=== PATIENT | female | born 1980 | race Two or more races ===

== ENCOUNTER 2024-04-22 14:58 | Inpatient (IN) | payer MEDICAID, OTHER ==
[~2024-04-22] VITALS: Ht 162.6 cm; Wt 90.0 kg
--- NOTE | 2024-04-22 15:21 | ED.PDOC ---
GI ASSESSMENT HPI Comments 43 year old female WHITNEY presents to the ED with chief complaint of abdominal pain. Patient reports that she has been experiencing RUQ abdominal pain for the past 4 hours. Patient relays that she has been taking Wegovy as prescribed by her PCP recently for weight loss. EMS relays patient's BG was 65 and also noted all her vital signs were normal. Patient denies any N/V/D, dizziness, fever, chills, dysuria, or headache. Time Seen by MD: 15:18 Reviewed Notes: Nurses Notes, Nutrition Teacher Notes, Medications, Allergies Allergies: Coded Allergies: Sulfa Antibiotics (Verified Allergy, Unknown, 04/22/24) Home Meds Active Scripts Pantoprazole Sodium Sesquihydr (Protonix) 40 Mg Tab, 40 MG PO DAILY for 5 Days, #5 TAB Prov:EULALIO MEDEL MD 04/22/24 Information Source: Patient, Emergency Med Personnel Mode of Arrival: Ambulatory Timing: Hours Duration: Since onset Prehospital treatment: None Quality: Aching Vomitus: None Stool: Normal Severity: Moderate Recent: None Recent Hx of: None Pain Location: RUQ Modifying Factors: Nothing Associated sign and symptoms: Abdominal Pain Past Medical History PAST MEDICAL HISTORY: Denies Surgical History: Appendectomy Surgical History (Other): Gastric sleeve OPTOMETRIST/PRACTICE OWNER History: No Pertinent OPTOMETRIST/PRACTICE OWNER History Family History Family History: Reviewed,noncontributory to illness Social History Smoker: Non-Smoker Alcohol: Denies ETOH Use Drugs: Denies Drug Use Lives In: Home Constitutional: denies: chills, diaphoresis, fatigue, fever, malaise, sweats, weakness, others EENTM: denies: blurred vision, double vision, ear bleeding, ear discharge, ear drainage, ear pain, ear ringing, eye pain, eye redness, hearing loss, mouth pain, mouth swelling, nasal discharge, nose bleeding, nose congestion, nose pain, photophobia, tearing, throat pain, throat swelling, voice changes, others Respiratory: denies: cough, hemoptysis, orthopnea, SOB at rest, shortness of breath, SOB with excertion, stridor, wheezing, others Cardiovascular: denies: chest pain, dizzy spells, diaphoresis, Dyspnea on exertion, edema, irregular heart beat, left arm pain, lightheadedness, palpitations, PND, syncope, others Gastrointestinal: reports: abdominal pain; denies: abdomen distended, blood streaked bowels, constipated, diarrhea, dysphagia, difficulty swallowing, hematemesis, melena, nausea, poor appetite, poor fluid intake, rectal bleeding, rectal pain, vomiting, others Genitourinary: denies: abnormal vagina bleeding, burning, dyspareunia, dysuria, flank pain, frequency, hematuria, incontinence, pain, , vagina discharge, urgency, others Neurological: denies: dizziness, fainting, headache, left sided numbness, left sided weakness, numbness, paresthesia, pre-existing deficit, right sided numbness, right sided weakness, seizure, speech problems, tingling, tremors, weakness, others Musculoskeletal: denies: back pain, gout, joint pain, joint swelling, muscle pain, muscle stiffness, neck pain, others Integumetry: denies: bruises, change in color, change in hair/nails, dryness, laceration, lesions, lumps, rash, wounds, others Allergic/Immunocompromised: denies: Difficulty Healing, Frequent Infections, Hives, Itching, others Hematologic/Lymphatic: denies: anemia, blood clots, easy bleeding, easy bruising, swollen glands, others Endocrine: denies: excessive hunger, excessive sweating, excessive thirst, excessive urination, flushing, intolerance to cold, intolerance to heat, unexplained weight gain, unexplained weight loss, others Psychiatric: denies: anxiety, bipolar disorder, depression, hopeless, panic disorder, schizophrenia, sleepless, suicidal, others All Other Systems: Reviewed and Negative Physical Exam General Appearance: Moderate Distress, Normal HEENT: Normal ENT Inspection, PERRL/EOMI Neck: Full Range of Motion, Non-Tender, Normal, Normal Inspection Respiratory: Chest Non-Tender, Lungs Clear, No Accessory Muscle Use, No Respiratory Distress, Normal Breath Sounds Cardiovascular: No Edema, No JVD, No Murmur, No Gallop, Normal Peripheral Pul ses, Regular Rate/Rhythm Breast Exam: Deferred Gastrointestinal: No Organomegaly, Non Tender, No Pulsatile Mass, Normal Bowel Sounds, Soft Genitalia: Deferred Pelvic: Deferred Rectal: Deferred Extremities: No calf tenderness, Normal capillary refill, Normal inspection, Normal range of motion, Non-tender, No pedal edema Musculoskeletal : Apperance: Normal Neurologic: Alert, shock absorption floor layer II-XII nml as Tested, No Motor Deficits, Normal Affect, Normal Mood, No Sensory Deficits Cerebellar Function: Normal Reflexes: Normal Skin: Dry, Normal Color, Warm Peripheral Pulses: 3+ Radial (R), 3+ Radial (L) Lymphatic: No Adenopathy Was a procedure done? Was a procedure done?: No GI differential Dx Differential Diagnosis: Constipation, Diverticular disease, Esophagitis, Gastritis/PUD, Gastroenteritis X-Ray, Labs, Meds, VS Vital Signs Date Time Temp Pulse Resp B/P (MAP) Pulse Ox O2 Delivery O2 Flow Rate FiO2 04/22/24 17:00 102 15 100 Room Air* 0 21 04/22/24 17:00 102 15 156/93 (114) 100 04/22/24 15:02 98.7 100 20 140/84 (102) 98 Lab Test 04/22/24 15:21 Range/Units White Blood Count 8.5 4.4-10.8 10^3/uL Red Blood Count 4.09 4.0-5.20 10^6/uL Hemoglobin 11.7 L 12.2-16.2 g/dL Hematocrit 36.7 36.0-46.0 % Mean Corpuscular Volume 89.9 80.0-100.0 fL Mean Corpuscular Hemoglobin 28.5 28.0-32.0 pg Mean Corpuscular Hemoglobin Concent 31.7 L 32.0-36.0 g/dL Red Cell Distribution Width 18.1 H 11.8-14.3 % Platelet Count 361 140-450 10^3/uL Mean Platelet Volume 6.2 L 6.9-10.8 fL Neutrophils (%) (Auto) 71.2 37.0-80.0 % Lymphocytes (%) (Auto) 20.6 10.0-50.0 % Monocytes (%) (Auto) 7.5 0.0-12.0 % Eosinophils (%) (Auto) 0.4 0.0-7.0 % Basophils (%) (Auto) 0.3 0.0-2.0 % Neutrophils # (Auto) 6.0 1.6-8.6 10 ^3/uL Lymphocytes # (Auto) 1.7 0.4-5.4 10 ^3/uL Monocytes # (Auto) 0.6 0-1.3 10 ^3/uL Eosinophils # (Auto) 0 0-0.8 10 ^3/uL Basophils # (Auto) 0 0-0.2 10 ^3/uL Nucleated Red Blood Cells 0.2 % Sodium Level 139 136-145 mmol/L Potassium Level 3.6 3.5-5.1 mmol/L Chloride Level 103 98-107 mmol/L Carbon Dioxide Level 27 20-31 mmol/L Anion Gap 9 5-15 Blood Urea Nitrogen < 5 L 9-23 mg/dL Creatinine 0.84 0.550-1.02 mg/dL Glomerular Filtration Rate Calc 87 >90 mL/min BUN/Creatinine Ratio 6.0 L 10.0-20.0 Serum Glucose 92 74-106 mg/dL Calcium Level 10.0 8.7-10.4 mg/dL Total Bilirubin 0.3 0.2-1.0 mg/dL Current Medications Medications (Trade) Dose Ordered Sig/Otis Route Start Time Stop Time Status Last Admin Acetaminophen/ Hydrocodone Bitart ([place] 10/325MG Tab) 1 tab ONCE ONCE PO 04/22/24 17:30 04/22/24 17:31 04/22/24 17:26 Patient alert. Came in because of abdominal pain. Abdomen is soft nontender. Vitals stable. WBC within normal limits. Hematocrit within normal limits. Total bilirubin within normal limits. Physical examination pristine. Reviewed her history. On re-evaluation abdomen is soft. No leg swelling. Lungs clear. Saturation pristine on room air. Heart rate within normal limits. Possible gastritis. Explained to the patient. Was given prescription of Protonix. Was told to follow up with her primary care physician. Was told to come back if there is any problem. Wanted to discharge the patient but she insists that pain is more than when she came in. She continues to hold her right side of her abdomen. Abdomen is soft on examination. CT scan of the abdomen. She did have bariatric surgery many years ago. Time of 1ST Reevaluation: 16:18 Reevaluation 1ST: Unchanged Patient Education/Counseling: Diagnosis, Treatment Family Education/Counseling: No Family Present Departure 1 Departure Time of Disposition: 16:31 Impression: Primary Impression: Acute abdominal pain Additional Impression: Gastritis Qualified Codes: K29.00 - Acute gastritis without bleeding Disposition: ADMITTED INPATIENT Admit to: Med Surg Condition: Guarded e-Prescriptions Pantoprazole Sodium Sesquihydr (Protonix) 40 Mg Tab 40 MG PO DAILY for 5 Days, #5 TAB Prov: EULALIO MEDEL MD 04/22/24 Critical Care Note Critical Care Time?: No Stability Stability form required: No Heart Score Heart Score: Heart Score Response (Comments) Value History N/A 0 EKG N/A 0 Age N/A 0 Risk Factors N/A 0 Troponin N/A 0 Total 0 I personally scribed for EULALIO MEDEL MD ([email or web address]) on 04/22/24 at 15:21. Electronically submitted by Harrison Martinez ([email or web address]). EULALIO MEDEL MD Apr 22, 2024 15:21
[2024-04-22 15:42] LABS: Basophils # (auto) 0 10 ^3/uL (0-0.2); Basophils % (auto) 0.3 % (0.0-2.0); Eosinophils # (auto) 0 10 ^3/uL (0-0.8); Eosinophils % (auto) 0.4 % (0.0-7.0); Hematocrit 36.7 % (36.0-46.0); Hemoglobin 11.7 g/dL (12.2-16.2); Lymphocytes # (auto) 1.7 10 ^3/uL (0.4-5.4); Lymphocytes % (auto) 20.6 % (10.0-50.0); Mean Corpuscular Hemoglobin 28.5 pg (28.0-32.0); Mean Corpuscular Hgb Conc. 31.7 g/dL (32.0-36.0); Mean Corpuscular Volume 89.9 fL (80.0-100.0); Monocytes # (auto) 0.6 10 ^3/uL (0-1.3); Monocytes % (auto) 7.5 % (0.0-12.0); Neutrophils % (auto) 71.2 % (37.0-80.0); Nucleated Red Blood Cells % 0.2 %; Platelet Count (auto) 361 10^3/uL (140-450); Red Blood Cells 4.09 10^6/uL (4.0-5.20); Red Cell Distribution Width 18.1 % (11.8-14.3); White Blood Cell 8.5 10^3/uL (4.4-10.8)
[2024-04-22 15:52] LABS: Chloride 103 mmol/L (98-107); Potassium 3.6 mmol/L (3.5-5.1); Sodium 139 mmol/L (136-145)
[2024-04-22 15:53] LABS: Anion Gap 9 (5-15); Carbon Dioxide 27 mmol/L (20-31)
[2024-04-22 15:58] LABS: Glucose 92 mg/dL (74-106)
[2024-04-22 16:00] LABS: Bilirubin, Total 0.3 mg/dL (0.2-1.0)
[2024-04-22 16:10] LABS: Blood Urea Nitrogen < 5 mg/dL (9-23)
[2024-04-22] MEDS ORDERED: PANT40TA2 PO (16:32)
[2024-04-22 17:00] VITALS: PULSE 102; RESP 15; O2SAT 100
[2024-04-22] MEDS: HYDROcodone-ACET 10/325MG TAB PO ONE (17:26)
[2024-04-22] MEDS: PANTOPRAZOLE 40 MG/10 ML VIAL INJ IV ONE (17:30)
[2024-04-22] MEDS: SODIUM CHLORIDE 0.9% 1,000 ML IV ONE ×2 (17:30)
--- NOTE | 2024-04-22 19:40 | DVH ---
CLINICAL HISTORY: Flank pain, renal stone TECHNIQUE: CT of the abdomen and pelvis was performed without intravenous contrast. This exam was per formed according to our departmental dose optimization program. Up-to-date CT equipment and radiation dose reduction techniques are utilized as appropriate. [Radimetrics Exposure Report] CTDI: [CTDIvol] DLP: 747.77 WID: COMPARISON: None FINDINGS: Lower Thorax: Small left pleural effusion. Normal-sized heart. Linear bibasilar scarring or atelecta sis. ground-glass opacification in the dependent right lower lobe Liver and Biliary system: Hepatomegaly measuring 20 cm craniocaudal. Otherwise unremarkable Spleen: Unremarkable. Adrenal Glands and Kidneys: Normal adrenal glands. No hydronephrosis or nephrolithiasis. Pancreas and Retroperitoneum: Unremarkable. Aorta and Major Vessels: Unremarkable. Bowel, Mesentery and Peritoneal space: Normal caliber small and large bowel. there is submucosal fatt y deposition of the large bowel most pronounced proximally. There is sleeve gastrectomy changes. Ther e is no free air or loculated fluid collection there is no mesenteric lymphadenopathy. Pelvis: The uterus is present. There are cystic small lesions in both ovaries measuring up to 2.3 cm on the right and 1.9 cm on the left on series 2, image 68. Urinary bladder is mildly distended. Ther e is no pelvic lymphadenopathy. Trace ascites in the pelvis.1 Abdominal wall and Osseous Structures: There soft tissue scarring in the posterior bilateral flank an d in the anterior and lateral abdominal wall. Tiny fat containing umbilical hernia. Mild degenerative disc disease at L5-S1. No destructive osseous lesion. IMPRESSION: 1. No hydronephrosis or nephrolithiasis. 2. Small left pleural effusion. 3. Mild ground-glass opacification of the dependent right lower lobe which could reflect atelectasis or pneumonia . 4. Mild Hepatomegaly. 5. Small cystic lesions in both ovaries which could reflect follicular cysts if the patient is still menstruating. Correlate with clinical history. 6. Prior sleeve gastrectomy. 7. Mild ascites in the pelvis which may be physiologic
[2024-04-22] MEDS ORDERED: MORPHINE SULFATE INJ 2 MG/ml SYRG IV PRN (22:30)
[2024-04-22] MEDS ORDERED: NITROGLYCERIN 0.4 MG SL TAB SL PRN (22:30)
[2024-04-22] MEDS: SODIUM CHLORIDE 0.9% 1,000 ML IV SCH (22:30)
[2024-04-22] MEDS ORDERED: ACETAMINOPHEN 325 MG TAB PO PRN (22:30)
[2024-04-23] VITALS (9 sets, daily range): BP systolic 119–143; BP diastolic 72–82; PULSE 93–104; RESP 17–27; TEMP 97.8–99; O2SAT 94–98
[2024-04-23 00:08] LABS: Thyroid Stimulating Hormone 1.67 uIU/mL (0.55-4.78)
[2024-04-23 00:09] LABS: Beta HCG, Quantitative 0.1 mIU/mL (1.5-4.2)
[2024-04-23] MEDS: ONDANSETRON HCL 4 MG/2 ML VIAL IV ONE (00:15)
[2024-04-23] MEDS: MORPHINE SULFATE INJ 2 MG/ml SYRG IV PRN (00:17)
[2024-04-23] MEDS: LIDOCAINE VISCOUS 2% 15ML UD PO ONE (00:18)
[2024-04-23] MEDS: MAALOX PLUS or MAALOX 30 ML PO ONE (00:18)
--- NOTE | 2024-04-23 01:12 | DVHHPRES ---
History of Present Illness Resident Creating Document: TRINO SMITH RESIDENT Reason for Visit: acute abdominal pain History of Present Illness 43-year-old female patient with past medical history of appendectomy at age 6 and gastric sleeve surgery who presented to the emergency department with a chief complaint of severe abdominal pain localized in the right upper quadrant radiating to the back the pain started acutely this morning, is constant, and is rated as 10/10 intensity. The severity of the pain significantly impairs her ability to move, speak or perform basic activities. She denies associated symptoms such as nausea vomiting, diarrhea or chest pain. The patient reports recently starting Wegovy which is semaglutide as prescribed by her primary care physician for weight loss. She denies other significant complaints at this time. She has no history of smoking cigarettes but occasionally smoke marijuana and consumes alcohol approximately 4 times a week with 2-3 drinks per occasion. She has an allergy to sulfa antibiotics. On examination the patient was in significant distress and reluctant to undergo further physical examination until pain medication was provided. CT abdomen revealed mild hepatomegaly, small pleural effusion, mild ground-glass opacification in the right lower lobe and mild pelvic ascites these findings could raise concerns for possible pneumonia for which the patient was started on empiric antibiotic with azithromycin and ceftriaxone and also sputum culture and blood culture were ordered. Family History: None Smoke: No ALCOHOL: heavy Drugs: Marijuana Lives: with Family Domestic Violence: Neg Review of Systems Review of Systems Constitutional: Positive for severe pain and distress. Negative for fever or weight changes. Eyes: No: Pain, Vision change, Conjunctivae inflammation, Eyelid inflammation, Other, Redness ENT: No: Ear pain, Ear discharge, Nose pain, Nose discharge, Nose congestion, Mouth pain, Mouth swelling, Throat pain, Throat swelling, Other Respiratory: Tachypnea, negative for dyspnea cough or chest pain Cardiovascular: No: Chest Pain, Palpitations, Orthopnea, Paroxysmal Noc. Dyspnea, Edema, Lt Headedness, Other Gastrointestinal: Positive for right upper quadrant pain, exactly localize pill below the right breast, negative for nausea vomiting diarrhea or constipation. Musculoskeletal: No: other, neck pain, shoulder pain, arm pain, back pain, hand pain, leg pain, foot pain Neurological:; negative for headache or focal deficits. Allergies: Coded Allergies: Latex (Verified Allergy, Intermediate, RASH, 04/23/24) Sulfa Antibiotics (Verified Allergy, Unknown, 04/22/24) Medications Current Medications Medications Dose Ordered Sig/Otis Route Start Time Stop Time Status Last Admin Dose Admin Sodium Chloride 1,000 ml @ 60 mls/hr [id number] IV 04/22/24 22:30 Ondansetron HCl 4 mg Q4HP PRN IV 04/22/24 22:30 Acetaminophen 650 mg Q6HP PRN PO 04/22/24 22:30 Morphine Sulfate 2 mg Q4HPRN PRN IV 04/22/24 22:30 04/23/24 00:17 2 MG Nitroglycerin 0.4 mg Q5MINP PRN SL 04/22/24 22:30 Morphine Sulfate 2 mg Q30M PRN IV 04/22/24 22:30 Exam Vital Signs Vital Signs Date Time Temp Pulse Resp B/P (MAP) Pulse Ox O2 Delivery O2 Flow Rate FiO2 04/23/24 00:17 104 22 143/78 04/22/24 20:03 99.0 100 99.0 04/22/24 17:00 Room Air* 0 21 Exam Examination General Appearance: Patient appears in acute distress, visibly uncomfortable Respiratory: Clear to auscultation, Normal air movement Cardiovascular: Regular rate, Normal S1, Normal S2 Abdominal: Significant tenderness on palpation in the right upper quadrant below the right breast. That radiates to the back Examination limited due to patient's distress and refusal for further evaluation Labs/Xrays Labs Test 04/22/24 15:21 Range/Units White Blood Count 8.5 4.4-10.8 10^3/uL Red Blood Count 4.09 4.0-5.20 10^6/uL Hemoglobin 11.7 L 12.2-16.2 g/dL Hematocrit 36.7 36.0-46.0 % Mean Corpuscular Volume 89.9 80.0-100.0 fL Mean Corpuscular Hemoglobin 28.5 28.0-32.0 pg Mean Corpuscular Hemoglobin Concent 31.7 L 32.0-36.0 g/dL Red Cell Distribution Width 18.1 H 11.8-14.3 % Platelet Count 361 140-450 10^3/uL Mean Platelet Volume 6.2 L 6.9-10.8 fL Neutrophils (%) (Auto) 71.2 37.0-80.0 % Lymphocytes (%) (Auto) 20.6 10.0-50.0 % Monocytes (%) (Auto) 7.5 0.0-12.0 % Eosinophils (%) (Auto) 0.4 0.0-7.0 % Basophils (%) (Auto) 0.3 0.0-2.0 % Neutrophils # (Auto) 6.0 1.6-8.6 10 ^3/uL Lymphocytes # (Auto) 1.7 0.4-5.4 10 ^3/uL Monocytes # (Auto) 0.6 0-1.3 10 ^3/uL Eosinophils # (Auto) 0 0-0.8 10 ^3/uL Basophils # (Auto) 0 0-0.2 10 ^3/uL Nucleated Red Blood Cells 0.2 % Sodium Level 139 136-145 mmol/L Potassium Level 3.6 3.5-5.1 mmol/L Chloride Level 103 98-107 mmol/L Carbon Dioxide Level 27 20-31 mmol/L Anion Gap 9 5-15 Blood Urea Nitrogen < 5 L 9-23 mg/dL Creatinine 0.84 0.550-1.02 mg/dL Glomerular Filtration Rate Calc 87 >90 mL/min BUN/Creatinine Ratio 6.0 L 10.0-20.0 Serum Glucose 92 74-106 mg/dL Hemoglobin A1c 5.1 <5.7 % A1C Calcium Level 10.0 8.7-10.4 mg/dL Total Bilirubin 0.3 0.2-1.0 mg/dL Thyroid Stimulating Hormone (TSH) 1.67 0.55-4.78 uIU/mL Beta HCG, Quantitative 0.1 L 1.5-4.2 mIU/mL Assessment/Plan Assessment/Plan #Acute abdominal pain, rule out biliary colic? Pancreatitis? Peptic ulcer disease? Hepatobiliary pathology? -CT scan was negative -Pelvic ultrasound showed right ovary cyst -Liver function tests -Lipase #Mild hepatomegaly and ascites likely due to alcoholic liver disease -Hepatic panel -Coagulation panel -CT scan was negative #Small pleural effusion and ground-glass opacities likely atelectasis versus pneumonia -Monitor respiratory symptoms -Re-evaluate with other chest x-rays -Empiric antibiotics (azithromycin and ceftriaxone) -Sputum culture --Blood culture -Chest x-rays # mild anemia -iron panel -ferritin #Type 1 obesity -Lifestyle modification counseling and dietary habits counseling #Alcohol abuse Alcohol cessation counseling Case discussed with Dr. Guillory Goals of care discussed with the patient for 32 minutes Code status: Full code Plan discussed with: Patient My Orders Orders - TRINO SMITH RESIDENT Procedure Category Date Status Time Admit ADMIT 04/22/24 Transmitted 22:30 Allergies GERALD 04/22/24 In Process 22:30 Code Status CODE 04/22/24 Transmitted 22:30 Sodium Chloride 0.9% PHA 04/22/24 In Process 22:30 Ondansetron Hcl PHA 04/22/24 In Process (Zofran) 22:30 Complete Blood Count LAB 04/23/24 Logged 04:00 Comprehensive LAB 04/23/24 Logged Metabolic Panel 04:00 Acetaminophen Tablet PHA 04/22/24 In Process (Tylenol Tablet) 22:30 Morphine Sulfate PHA 04/22/24 In Process Injection 22:30 Nitroglycerin PHA 04/22/24 In Process Sublingual (Ntrostat 22:30 Morphine Sulfate PHA 04/22/24 In Process Injection 22:30 Oxygen By Nasal RT 04/22/24 Transmitted Cannula 22:30 Stat Ekg For Chest [facility] 04/22/24 In Process Pain 22:30 Notify Md Of Changes [facility] 04/22/24 In Process From Base 22:30 Motor Coach Driver For [facility] 04/22/24 In Process 24 Hours 22:30 Emergency Dysrhythmia [facility] 04/22/24 In Process Protocol 22:30 Rhythm Strips Once [facility] 04/22/24 In Process Every Shift 22:30 Drug Screen LAB 04/22/24 Logged 22:53 Stool Occult Blood LAB 04/22/24 Logged 22:53 Covid19 Antigen Marj LAB 04/22/24 Logged Rapid Influenza A&B LAB 04/22/24 Logged 22:53 Npo (Nothing By DIET 04/23/24 Transmitted Mouth) Diet Breakfast Pelvic US 04/23/24 Taken 00:01 Date of Service: Apr 22, 2024 Billing Provider: VIVIANA GUILLORY MD Common Visit Codes: 16157-CHFFCXI INP/OBS CARE (HIGH) TRINO SMITH RESIDENT Apr 23, 2024 01:12 VIVIANA GUILLORY MD Apr 23, 2024 19:28
--- NOTE | 2024-04-23 01:53 | DVH ---
TRANSABDOMINAL PELVIC ULTRASOUND CLINICAL HISTORY: acute abdominal pain TECHNIQUE: Multiple grayscale ultrasound images were obtained of the pelvis via transabdominal and tr ansvaginal approach. Limited color Doppler and spectral Doppler acquisitions were also obtained. COMPARISON: CT abdomen and pelvis from 04/22/2024 FINDINGS: Uterus: 10.3 x 4.7 x 3.7 cm. The uterine contour is smooth. No myometrial masses are seen. Endometrium: 0.5 cm. No endometrial mass is seen. Right adnexa: right ovary 3.1 x 2.6 x 2.5 cm. Normal arterial blood flow in the ovary. No right adnex al mass seen. Simple right ovarian cyst measures up to 1.9 cm Left adnexa: left ovary is not visualized. No left adnexal mass seen. Other: None IMPRESSION: 1. Normal uterus and endometrium. 2. Left ovary not visualized. 3. Right ovarian cyst
[2024-04-23] MEDS: AZITHROMYCIN 500MG/ 250ML 250 ML IV ONE (04:45)
[2024-04-23] MEDS: cefTRIAXone 1GM/50ML D5W 50 ML IV ONE (05:54)
--- NOTE | 2024-04-23 06:12 | DVH ---
CHEST RADIOGRAPH Indication: pneumonia Technique: Single frontal view of the chest was obtained COMPARISON: None FINDINGS: Lines and Tubes: None Lungs: Right lower lobe airspace opacity. Pleura: No effusion. No pneumothorax. Cardiomediastinal contours: Unremarkable Bones: Unremarkable IMPRESSION: Right lower lobe atelectasis or developing pneumonia.
[2024-04-23] MEDS: PANTOPRAZOLE 40 MG TAB PO SCH (07:04)
[2024-04-23 07:21] LABS: Basophils # (auto) 0 10 ^3/uL (0-0.2); Basophils % (auto) 0.1 % (0.0-2.0); Eosinophils # (auto) 0 10 ^3/uL (0-0.8); Eosinophils % (auto) 0.2 % (0.0-7.0); Hematocrit 37.4 % (36.0-46.0); Hemoglobin 11.9 g/dL (12.2-16.2); Lymphocytes # (auto) 0.8 10 ^3/uL (0.4-5.4); Lymphocytes % (auto) 10.5 % (10.0-50.0); Mean Corpuscular Hemoglobin 28.4 pg (28.0-32.0); Mean Corpuscular Hgb Conc. 31.9 g/dL (32.0-36.0); Mean Corpuscular Volume 89.2 fL (80.0-100.0); Monocytes # (auto) 0.4 10 ^3/uL (0-1.3); Monocytes % (auto) 5.8 % (0.0-12.0); Neutrophils % (auto) 83.4 % (37.0-80.0); Nucleated Red Blood Cells % 0.1 %; Platelet Count (auto) 375 10^3/uL (140-450); Red Cell Distribution Width 17.8 % (11.8-14.3); White Blood Cell 7.2 10^3/uL (4.4-10.8)
[2024-04-23 07:30] LABS: INR 1.09 (0.9-1.15); Prothrombin Time 11.5 sec (9.3-11.8)
[2024-04-23 07:32] LABS: % Iron Saturation 13.2 % (15-50)
[2024-04-23 07:34] LABS: Albumin 4.2 g/dL (3.2-4.8); Alkaline Phosphatase 74 U/L (46-116); Anion Gap 9 (5-15); Calcium 9.4 mg/dL (8.7-10.4); Carbon Dioxide 26 mmol/L (20-31); Chloride 102 mmol/L (98-107); Cholesterol 167 mg/dL (< 200); Glucose 101 mg/dL (74-106); HDL Cholesterol 54 mg/dL (40-59); LDL Cholesterol 85 mg/dL (< 100); Sodium 137 mmol/L (136-145); Triglycerides 87 mg/dL (< 150)
[2024-04-23 07:35] LABS: Bilirubin, Total 0.5 mg/dL (0.2-1.0); Total Protein 7.2 g/dL (5.7-8.2)
[2024-04-23 07:55] LABS: Alanine Aminotransferase < 9 U/L (7-40); Aspartate Aminotransferase 9 U/L (13-40); Blood Urea Nitrogen < 5 mg/dL (9-23)
--- NOTE | 2024-04-23 08:06 | DVH ---
INDICATION: alcoholic liver disease TECHNIQUE: Multiple real-time sonographic images were obtained of the right upper quadrant. COMPARISON: None FINDINGS: The liver demonstrates homogeneous echotexture without focal mass lesions. The liver measu res 19.0 cm. There is no intrahepatic or extrahepatic ductal dilatation. The common duct is not visualized. The gallbladder is without evidence of stone or sludge. The gallbladder wall measures 0.3 cm and is within normal limits. The right kidney measures 9.4 cm. The right kidney is normal in contour, size, and shape. The echog enicity is normal. Mild right renal pelvic fullness. The pancreas is not well visualized due to overlying bowel gas. IMPRESSION: Hepatomegaly. Mild right renal pelvic fullness.
[2024-04-23 09:15] LABS: Lipase 45 U/L (12-53)
[2024-04-23] MEDS: POTASSIUM CHL 20MEQ/100ML 100 ML IV SCH (09:15)
[2024-04-23] MEDS: ONDANSETRON HCL 4 MG/2 ML VIAL IV PRN (10:03)
[2024-04-23] MEDS: HYDROcodone-ACET 5/325MG TAB PO PRN (17:02)
[2024-04-23] MEDS ORDERED: SEMA2.4I SC (17:21)
[2024-04-23] MEDS ORDERED: ERGO1CAP12 PO (17:21)
[2024-04-23] MEDS ORDERED: FER325T PO (17:21)
[2024-04-23 18:30] LABS: COVID19 ANTIGEN SOFIA FIA NEGATIVE (NEGATIVE); Rapid Influenza A Negative (Negative); Rapid Influenza B Negative (Negative)
--- NOTE | 2024-04-23 18:37 | DVHPNRES ---
Progress Note Date Seen: Apr 23, 2024 Resident Creating Document: BONG EVERETT RESIDENT Has the PT tested + for MRSA If YES, has PT been informed?: No Medical Necessity Reason Pt with a Central, PICC or Fol: No Subjective Review of Systems 43-year-old female patient with past medical history of appendectomy at age 6 and gastric sleeve surgery who presented to the emergency department with a chief complaint of pleuritic pain localized in the right hemithorax radiated to the upper quadrant of the abdomen and the back, the pain started 2 days ago , is constant, and is rated as 10/10 intensity. The patient reports recently starting Wegovy which is semaglutide as prescribed by her primary care physician for weight loss. She denies other significant complaints at this time. She has no history of smoking cigarettes but occasionally smoke marijuana and consumes alcohol approximately 4 times a week with 2-3 drinks per occasion. She has an allergy to sulfa antibiotics. On examination the patient was in significant distress and reluctant to undergo further physical examination until pain medication was provided. CT abdomen revealed mild hepatomegaly, small pleural effusion, mild ground-glass opacification in the right lower lobe and mild pelvic ascites these findings could raise concerns for possible pneumonia for which the patient was started on empiric antibiotic with azithromycin and ceftriaxone and also sputum culture and blood culture were ordered. Family History: None Smoke: No ALCOHOL: heavy Drugs: Marijuana Lives: with Family Domestic Violence: Neg Objective vital signs Vital Sign Date Time Temp Pulse Resp B/P (MAP) Pulse Ox O2 Delivery O2 Flow Rate FiO2 04/23/24 17:04 98.9 93 19 119/75 (90) 95 98.9 04/22/24 17:00 Room Air* 0 21 Total Intake and Output 04/22/24 04/22/24 04/23/24 15:00 23:00 07:00 Intake Total 1000 ml 300 ml Balance 1000 ml 300 ml medications Current Medications Medications Dose Ordered Sig/Otis Route Start Time Stop Time Status Last Admin Dose Admin Sodium Chloride 1,000 ml @ 60 mls/hr [id number] IV 04/22/24 22:30 04/23/24 09:35 60 MLS/HR Ondansetron HCl 4 mg Q4HP PRN IV 04/22/24 22:30 04/23/24 10:03 4 MG Acetaminophen 650 mg Q6HP PRN PO 04/22/24 22:30 Morphine Sulfate 2 mg Q4HPRN PRN IV 04/22/24 22:30 04/23/24 10:03 2 MG Nitroglycerin 0.4 mg Q5MINP PRN SL 04/22/24 22:30 Morphine Sulfate 2 mg Q30M PRN IV 04/22/24 22:30 Ceftriaxone Sodium 50 ml @ 100 mls/hr DAILY@09 IV 04/24/24 09:00 Azithromycin 250 ml @ 125 mls/hr DAILY IV 04/24/24 10:00 Pantoprazole Sodium 40 mg DAILY IV 04/24/24 10:00 Ketorolac Tromethamine 15 mg Q6HPRN PRN IV 04/23/24 12:00 04/28/24 11:59 Hold Acetaminophen/ Hydrocodone Bitart 1 tab Q6HPRN PRN PO 04/23/24 17:00 04/23/24 17:02 1 TAB Examination General Appearance: Patient appears in acute distress, visibly uncomfortable Respiratory: Clear to auscultation, Normal air movement Cardiovascular: Regular rate, Normal S1, Normal S2 Abdominal: Significant tenderness on palpation in the right upper quadrant below the right breast. That radiates to the back Examination limited due to patient's distress and refusal for further evaluation laboratory and microbiology Laboratory Tests 04/23/24 06:56 Test 04/23/24 06:56 Range/Units Serum Glucose 101 74-106 mg/dL Problem List/Assessment/Plan Problem List/Assessment/Plan #Abdominal and chest pain due to pneumonia gram+/gram - #Small pleural effusion due to pneumonia #Mild hepatomegaly and ascites likely due to alcoholic liver disease # mild anemia of chronic disease #Type 1 obesity #Alcohol abuse Images CT scan 1. No hydronephrosis or nephrolithiasis. 2. Small left pleural effusion. 3. Mild ground-glass opacification of the dependent right lower lobe which could reflect atelectasis or pneumonia 4. Mild Hepatomegaly. 5. Small cystic lesions in both ovaries which could reflect follicular cysts if the patient is still menstruating. Correlate with clinical history. 6. Prior sleeve gastrectomy. 7. Mild ascites in the pelvis which may be physiologic -IV fluids -Pain managment ketorolac -Empiric antibiotics (azithromycin and ceftriaxone) -Sputum culture --Blood culture Case discussed with Dr. Parada Goals of care discussed with the patient for 32 minutes Code status: Full code Plan discussed with: Patient, Other (rn) My Orders My Orders Orders - BONG EVERETT Procedure Category Date Status Time Ketorolac Injection PHA 04/23/24 In Process (Toradol Injection) 12:00 Date of Service: Apr 23, 2024 Billing Provider: CHARLES PARADA MD Common Visit Codes: 77916-[id number] INP/OBS CARE(HIGH) Secondary Visit Codes: [id number] CARE PLAN 30 MINUTES BONG EVERETT Apr 23, 2024 18:37 CHARLES PARADA MD Apr 24, 2024 21:12
[2024-04-24] VITALS (8 sets, daily range): BP systolic 103–124; BP diastolic 70–81; PULSE 90–121; RESP 12–19; TEMP 97.4–99.9; O2SAT 94–99
[2024-04-24 07:00] LABS: Basophils # (auto) 0 10 ^3/uL (0-0.2); Basophils % (auto) 0.2 % (0.0-2.0); Eosinophils # (auto) 0 10 ^3/uL (0-0.8); Eosinophils % (auto) 0.2 % (0.0-7.0); Hematocrit 32.6 % (36.0-46.0); Hemoglobin 10.8 g/dL (12.2-16.2); Lymphocytes # (auto) 0.8 10 ^3/uL (0.4-5.4); Lymphocytes % (auto) 10.6 % (10.0-50.0); Mean Corpuscular Hemoglobin 29.2 pg (28.0-32.0); Mean Corpuscular Hgb Conc. 33.1 g/dL (32.0-36.0); Mean Corpuscular Volume 88.2 fL (80.0-100.0); Monocytes # (auto) 0.5 10 ^3/uL (0-1.3); Neutrophils # (auto) 5.9 10 ^3/uL (1.6-8.6); Nucleated Red Blood Cells % 0.1 %; Platelet Count (auto) 346 10^3/uL (140-450); Red Blood Cells 3.69 10^6/uL (4.0-5.20); Red Cell Distribution Width 17.4 % (11.8-14.3); White Blood Cell 7.2 10^3/uL (4.4-10.8)
[2024-04-24 07:34] LABS: Albumin 3.7 g/dL (3.2-4.8); Alkaline Phosphatase 64 U/L (46-116); Anion Gap 10 (5-15); Bilirubin, Total 0.5 mg/dL (0.2-1.0); Calcium 9.1 mg/dL (8.7-10.4); Carbon Dioxide 24 mmol/L (20-31); Chloride 103 mmol/L (98-107); Glucose 80 mg/dL (74-106); Sodium 137 mmol/L (136-145)
[2024-04-24 07:35] LABS: Total Protein 6.1 g/dL (5.7-8.2)
[2024-04-24 07:36] LABS: Alanine Aminotransferase < 9 U/L (7-40); Aspartate Aminotransferase 9 U/L (13-40); BUN/Creatinine Ratio 7.4 (10.0-20.0); Blood Urea Nitrogen < 5 mg/dL (9-23); Potassium 3.4 mmol/L (3.5-5.1)
[2024-04-24] MEDS: PANTOPRAZOLE 40 MG/10 ML VIAL INJ IV SCH (09:14)
[2024-04-24] MEDS: cefTRIAXone 1GM/50ML D5W 50 ML IV SCH (09:15)
[2024-04-24] MEDS: AZITHROMYCIN 500MG/ 250ML 250 ML IV SCH (09:16)
[2024-04-24] MEDS: KETOROLAC TROMETH 30 MG/ML 1ML VIAL IV PRN (11:52)
--- NOTE | 2024-04-24 22:23 | DVHPNRES ---
Progress Note Date Seen: Apr 24, 2024 Resident Creating Document: TOMÁS SANTANA RESIDENT Has the PT tested + for MRSA If YES, has PT been informed?: No Medical Necessity Reason Pt with a Central, PICC or Fol: No Subjective Review of Systems Piper Oneal is a 43-year-old female patient who presents to ED with chief complaint of stabbing chest pain predominantly in right hemithorax intensity 10/10 which is exacerbated by breathing and coughing, associated with dyspnea in variable functional class (per patient she feels short of breath due to pain which does not allow her to take deep breaths), which started two days before her admission. Patient reports recently started with semaglutide for weight loss treatment, and believes this pain may have been trivial due to initiation of this therapy. Denies palpitation, syncope, nausea, vomiting, diarrhea, abdominal pain, recent travel, sick contacts, bleeding, dysuria and motor or sensory deficits. Past medical history Surgical history: Appendectomy at age 6, gastric sleeve surgery Family history: Noncontributory Social history: Lives with family in [place]. Ethanol abuse (drinks 4 times a week approximately 2-3 drinks per occasion). Marijuana use Allergies: Latex, sulfa antibiotics Home medication: Vitamin-D 25880 units weekly, ferrous sulfate, semaglutide Patient seen and examined at bedside. Continues with chest pain, indicated Ketoralac, and if if non successful indicate IV steroids. Progress diet to soft mechanical diet. Objective vital signs Vital Sign Date Time Temp Pulse Resp B/P (MAP) Pulse Ox O2 Delivery O2 Flow Rate FiO2 04/24/24 17:10 97.4 109 12 106/71 (83) 95 97.4 04/24/24 08:00 Room Air* 0 21 Total Intake and Output 04/23/24 04/23/24 04/24/24 15:00 23:00 07:00 Intake Total 200 ml 120 ml 0 ml Balance 200 ml 120 ml 0 ml medications Current Medications Medications Dose Ordered Sig/Otis Route Start Time Stop Time Status Last Admin Dose Admin Sodium Chloride 1,000 ml @ 60 mls/hr [id number] IV 04/22/24 22:30 04/24/24 09:25 60 MLS/HR Ondansetron HCl 4 mg Q4HP PRN IV 04/22/24 22:30 04/23/24 10:03 4 MG Acetaminophen 650 mg Q6HP PRN PO 04/22/24 22:30 Morphine Sulfate 2 mg Q4HPRN PRN IV 04/22/24 22:30 04/24/24 15:23 2 MG Nitroglycerin 0.4 mg Q5MINP PRN SL 04/22/24 22:30 Morphine Sulfate 2 mg Q30M PRN IV 04/22/24 22:30 Ceftriaxone Sodium 50 ml @ 100 mls/hr DAILY@09 IV 04/24/24 09:00 04/24/24 09:15 100 MLS/HR Azithromycin 250 ml @ 125 mls/hr DAILY IV 04/24/24 10:00 04/24/24 09:16 125 MLS/HR Pantoprazole Sodium 40 mg DAILY IV 04/24/24 10:00 04/24/24 10:00 40 MG Ketorolac Tromethamine 15 mg Q6HPRN PRN IV 04/23/24 12:00 04/28/24 11:59 04/24/24 11:52 15 MG Methylprednisolone Sodium Succinate 40 mg DAILY IV 04/25/24 10:00 Examination Patient lying in bed, in no acute distress General: Lucid, afebrile, mucosae are moist Cardiovascular: Normal S1 and S2. No murmurs, gallops or rubs Respiratory: Normal ventilation mechanics. Clear lung sounds on auscultation Abdomen: Soft, nontender, no organomegaly, normal bowel sounds MSK/skin: Mobilizes 4 limbs. Skin is dry and warm. Reproducible chest pain on superficial palpation of right hemithorax (in the inframammary region) Neurological: Oriented in 3 spheres. No motor no sensitive deficits. Pupils are isocoric and reactive laboratory and microbiology Laboratory Tests 04/24/24 05:52 Test 04/24/24 05:52 Range/Units Serum Glucose 80 74-106 mg/dL Microbiology Date/Time Source Procedure Growth Status 04/23/24 07:40 Blood Blood Culture - Preliminary NO GROWTH AFTER 24 HOURS OF INCUBATION. Resulted Labs and/or images reviewed: Labs reviewed by me, Image(s) reviewed by me Problem List/Assessment/Plan Problem List/Assessment/Plan Suspected sepsis due to Community-acquired pneumonia due to Gram-positive/Gram-negative bacteria Patient has no oxygen requirement. Influenza and COVID swabs are negative Currently under empiric IV antibiotic (ceftriaxone and azithromycin) Completed abdomen and pelvis CT: No hydronephrosis/nephrolithiasis, small left pleural effusion, mild ground-glass opacity on right lower lobe, hepatomegaly, small cystic lesion in both ovaries (could reflect follicular cyst), prior sleeve gastrectomy, mild ascites and pelvis which may be physiological Small left pleural effusion Evidence on chest CT Pleuritic chest pain Indicated Ketoralac. If this treatment fails, we will indicate IV steroids Mild hepatomegaly probably secondary to ethanol abuse No transaminitis Gave her advice on ethanol abuse cessation Normocytic anemia We will monitor Iron panel within lower borderline of normal limits. Decreased ferritin. Once patient tolerates oral intake, will continue p.o. iron Type 1 obesity Gave her advice on healthy lifestyle habits Patient has history of gastric sleeve. Currently on semaglutide Alcohol use disorder Marijuana use disorder Counseled on cessation for 18 minutes Ovarian cyst May be secondary to physiological cycle Beta HCG negative Hypokalemia Replenish Goals of care discussed with patient for 20 minutes: Full code status Discussed plan with Dr. Belle, patient and nurses: Patient currently tolerating soft mechanical diet. Continues with pleuritic chest pain. Continue indicating Ketoralac, if continues with pain indicated IV steroids. Plan discussed with: Patient, Other (Nurses) My Orders My Orders Orders - TOMÁS SANTANA RESIDENT Procedure Category Date Status Time Methylprednisolone PHA 04/25/24 In Process Sod Succ (Solu Medrol 10:00 Potassium Effervesent PHA 04/24/24 Logged Tab (Klor-Con/Ef) 22:15 Urinalysis LAB 04/24/24 Transmitted 22:03 Drug Screen LAB 04/24/24 Transmitted 22:03 Addendum Addendum Addendum I was physically present for the caruso portions of the service provided to patient by THE RESIDENT. I have reviewed the documentation, discussed the case with resident and agree with the resident's documentation except as noted. Also the patient's clinical case was discussed with the patient's nurse. This medical document was created using an electronic medical record system with computerized dictation system. Although this document has been carefully reviewed, there might still be some phonetic and typographical errors. These areas are purely typographical due to imperfections of the software programs, and do not reflect any compromise in the patient's medical care. Late signature. Date of Service: Apr 24, 2024 Billing Provider: MISSY BELLE MD Common Visit Codes: [id number] INP/OBS CARE(HIGH) Secondary Visit Codes: [id number] CHNG SMOKING >10MIN (Counseled on alcohol and marijuana use cessation for 18 minutes), [id number] CARE PLAN 30 MINUTES (20 minutes) TOMÁS SANTANA RESIDENT Apr 24, 2024 22:23 MISSY BELLE MD Apr 26, 2024 05:03
[2024-04-25] MEDS: POTASSIUM EFFERVESENT TAB 25 MEQ PO ONE (00:51)
[2024-04-25 01:00] VITALS: BP 106/64; PULSE 109; RESP 19; TEMP 98.8; O2SAT 95
[2024-04-25 05:00] VITALS: BP 109/69; PULSE 104; RESP 18; TEMP 98.3; O2SAT 95
[2024-04-25 08:00] VITALS: RESP 16; O2SAT 96
[2024-04-25] MEDS: methylPREDNISolone SOD SUCC 40 MG/ML VL IV SCH (09:51)
[2024-04-25 10:01] LABS: Urine Bacteria MANY /hpf (None Seen); Urine Blood Negative /uL (Negative); Urine Clarity Turbid (Clear); Urine Color Yellow (Yellow); Urine Mucus FEW (None Seen); Urine Protein, UAD 1+ (Negative); Urine Specific Gravity 1.023 (1.001-1.035); Urine Urobilinogen Normal (Negative); Urine WBC 6 /hpf (0 - 5)
[2024-04-25 10:10] LABS: Amphetamine Screen, Urine Neg (NEGATIVE); Barbiturate Scree,Urine Neg (NEGATIVE); Benzodiazephine Screen, Urine Neg (NEGATIVE); Cocaine Screen, Urine Neg (NEGATIVE); Opiate Scree,Urine Pos (NEGATIVE)
[2024-04-25 10:11] LABS: Cannabinoid Screen, Urine Neg (NEGATIVE); Phencyclidine Screen, Urine Neg (NEGATIVE)
[2024-04-25] MEDS ORDERED: LEVO500T91 PO (12:59)
--- NOTE | 2024-04-25 14:13 | DVHDSRES ---
Discharge Summary Date of Admission Resident Creating Document: TOMÁS SANTANA RESIDENT Apr 22, 2024 at 22:30 Date of Discharge: Apr 25, 2024 Admitting Diagnosis Chest pain, dyspnea, and protective cough Labs/Diagnostic Data: Laboratory Results Test 04/24/24 09:50 04/24/24 05:52 04/23/24 07:40 04/23/24 06:56 Urine Color Yellow (Yellow) Urine Clarity Turbid (Clear) Urine pH 6.0 (5.0-9.0) Urine Specific [place] 1.023 (1.001-1.035) Urine Protein 1+ (Negative) Urine Ketones 3+ (Negative) Urine Blood Negative /uL (Negative) Urine Nitrite Negative (Negative) Urine Bilirubin Negative (Negative) Urine Urobilinogen Normal mg/dL (Negative) Urine Leukocyte Esterase Negative /uL (Negative) Urine RBC 3 /hpf (0 - 4) Urine WBC 6 /hpf (0 - 5) Urine Squamous Epithelial Cells Few /hpf (<5) Urine Bacteria Many /hpf (None Seen) Urine Mucus Few (None Seen) Urine Glucose Normal mg/dL (Normal) Urine Opiates Screen Pos (NEGATIVE) Urine Fentanyl Screen Neg (NEGATIVE) Urine Barbiturates Screen Neg (NEGATIVE) Urine Phencyclidine Screen Neg (NEGATIVE) Urine Amphetamines Screen Neg (NEGATIVE) Urine Benzodiazepines Screen Neg (NEGATIVE) Urine Cocaine Screen Neg (NEGATIVE) Urine Cannabinoids Screen Neg (NEGATIVE) White Blood Count 7.2 10^3/uL (4.4-10.8) Red Blood Count 3.69 10^6/uL (4.0-5.20) Hemoglobin 10.8 g/dL (12.2-16.2) Hematocrit 32.6 % (36.0-46.0) Mean Corpuscular Volume 88.2 fL (80.0-100.0) Mean Corpuscular Hemoglobin 29.2 pg (28.0-32.0) Mean Corpuscular Hemoglobin Concent 33.1 g/dL (32.0-36.0) Red Cell Distribution Width 17.4 % (11.8-14.3) Platelet Count 346 10^3/uL (140-450) Mean Platelet Volume 6.5 fL (6.9-10.8) Neutrophils (%) (Auto) 82.0 % (37.0-80.0) Lymphocytes (%) (Auto) 10.6 % (10.0-50.0) Monocytes (%) (Auto) 7.0 % (0.0-12.0) Eosinophils (%) (Auto) 0.2 % (0.0-7.0) Basophils (%) (Auto) 0.2 % (0.0-2.0) Neutrophils # (Auto) 5.9 10 ^3/uL (1.6-8.6) Lymphocytes # (Auto) 0.8 10 ^3/uL (0.4-5.4) Monocytes # (Auto) 0.5 10 ^3/uL (0-1.3) Eosinophils # (Auto) 0 10 ^3/uL (0-0.8) Basophils # (Auto) 0 10 ^3/uL (0-0.2) Nucleated Red Blood Cells 0.1 % Sodium Level 137 mmol/L (136-145) Potassium Level 3.4 mmol/L (3.5-5.1) Chloride Level 103 mmol/L (98-107) Carbon Dioxide Level 24 mmol/L (20-31) Anion Gap 10 (5-15) Blood Urea Nitrogen < 5 mg/dL (9-23) Creatinine 0.68 mg/dL (0.550-1.02) Glomerular Filtration Rate Calc 109 mL/min (>90) BUN/Creatinine Ratio 7.4 (10.0-20.0) Serum Glucose 80 mg/dL (74-106) Calcium Level 9.1 mg/dL (8.7-10.4) Total Bilirubin 0.5 mg/dL (0.2-1.0) Aspartate Amino Transferase (AST) 9 U/L (13-40) Alanine Aminotransferase (ALT) < 9 U/L (7-40) Alkaline Phosphatase 64 U/L (46-116) Total Protein 6.1 g/dL (5.7-8.2) Albumin 3.7 g/dL (3.2-4.8) Plasma/Serum Blood Alcohol < 3.0 mg/dL (<10) Prothrombin Time 11.5 sec (9.3-11.8) Prothrombin Time INR 1.09 (0.9-1.15) Iron Level 53 ug/dL (50-170) Total Iron Binding Capacity 402 ug/dL (250-425) Percent Iron Saturation 13.2 % (15-50) Ferritin 7.0 ng/mL (10-291) Triglycerides Level 87 mg/dL (< 150) Cholesterol Level 167 mg/dL (< 200) LDL Cholesterol 85 mg/dL (< 100) HDL Cholesterol 54 mg/dL (40-59) Lipase 45 U/L (12-53) Test 04/22/24 16:53 04/22/24 15:21 Influenza Type A Antigen Negative (Negative) Influenza Type B Antigen Negative (Negative) SARS-CoV-2 Antigen (Rapid) Negative (NEGATIVE) Hemoglobin A1c 5.1 % A1C (<5.7) Thyroid Stimulating Hormone (TSH) 1.67 uIU/mL (0.55-4.78) Beta HCG, Quantitative 0.1 mIU/mL (1.5-4.2) Other Laboratory Tests 04/24/24 05:52 Brief Hx & Hospital Course: A 43-year-old female with a history of morbid obesity, recent use of semaglutide for weight loss, and chronic alcohol use, who presented with severe chest pain, dyspnea, and productive cough. Imaging revealed findings consistent with community-acquired pneumonia , with a small left pleural effusion and mild ground-glass opacity in the right lower lobe. Blood cultures showed no growth, and the patient was started on IV ceftriaxone and azithromycin. Symptoms improved during the hospitalization, and she was transitioned to Levaquin 500 mg once daily for 5 days to complete the antibiotic course. Pain management with ketorolac was initiated for chest pain, likely musculoskeletal in origin. So was given one dose of Diflucan 200 mg as the patient could develop fungal vaginosis due to oral antibiotics. Additional findings included non-malignant ovarian cysts noted on imaging and mild hepato-steatosis, likely secondary to alcohol use. Goals of care were discussed, and the patient expressed a desire to continue full code status. She was discharged home in stable condition with instructions to follow up with her primary care physician, complete her Levaquin regimen, and return for any worsening respiratory symptoms or chest pain. Physical examination on the day of discharge General: Lucid, afebrile, mucosae are moist Cardiovascular: Normal S1 and S2. No murmurs, gallops or rubs Respiratory: Normal ventilation mechanics. Clear lung sounds on auscultation Abdomen: Soft, nontender, no organomegaly, normal bowel sounds MSK/skin: Mobilizes 4 limbs. Skin is dry and warm. Reproducible chest pain on superficial palpation of right hemithorax (in the inframammary region) Neurological: Oriented in 3 spheres. No motor no sensitive deficits. Pupils are isocoric and reactive Case discussed with Dr Belle Operations or Procedures FINDINGS: Lower Thorax: Small left pleural effusion. Normal-sized heart. Linear bibasilar scarring or atelectasis. ground-glass opacification in the dependent right lower lobe Liver and Biliary system: Hepatomegaly measuring 20 cm craniocaudal. Otherwise unremarkable Spleen: Unremarkable. Adrenal Glands and Kidneys: Normal adrenal glands. No hydronephrosis or nephrolithiasis. Pancreas and Retroperitoneum: Unremarkable. Aorta and Major Vessels: Unremarkable. Bowel, Mesentery and Peritoneal space: Normal caliber small and large bowel. there is submucosal fatty deposition of the large bowel most pronounced proximally. There is sleeve gastrectomy changes. There is no free air or loculated fluid collection there is no mesenteric lymphadenopathy. Pelvis: The uterus is present. There are cystic small lesions in both ovaries measuring up to 2.3 cm on the right and 1.9 cm on the left on series 2, image 68. Urinary bladder is mildly distended. There is no pelvic lymphadenopathy. Trace ascites in the pelvis.1 Abdominal wall and Osseous Structures: There soft tissue scarring in the posterior bilateral flank and in the anterior and lateral abdominal wall. Tiny fat containing umbilical hernia. Mild degenerative disc disease at L5-S1. No destructive osseous lesion. IMPRESSION: 1. No hydronephrosis or nephrolithiasis. 2. Small left pleural effusion. 3. Mild ground-glass opacification of the dependent right lower lobe which could reflect atelectasis or pneumonia . 4. Mild Hepatomegaly. 5. Small cystic lesions in both ovaries which could reflect follicular cysts if the patient is still menstruating. Correlate with clinical history. 6. Prior sleeve gastrectomy. 7. Mild ascites in the pelvis which may be physiologic Condition at Discharge: Stable Final Diagnosis/Problems List #sepsis due to pneumonia due to Gram-positive/Gram-negative bacteria #Small left pleural effusion #Pleuritic chest pain #Mild hepatomegaly probably secondary to ethanol abuse #Normocytic anemia #Type 1 obesity #Ethanol abuse #Marijuana abuse #Ovarian cyst #Hypokalemia resolved Discharge Disposition: Home Discharge Instruct/Medications Diet: Regular, Consistent carbohydrate Activity: No Restrictions, As Tolerated Follow Up/Referral: FU WITH PCP/discharge clinic within 1 to 2 weeks Medications: Sent home on oral antibiotics Discharge Statement: "Patient was advised to return to the ER or call 911 if any headaches, dizziness, shortness of breath, chest pain, abdominal pain, bleeding, fevers, or worsening of medical condition. Patient was counseled about treatment plan, medications, possible side effects, patientverbalized understanding. All questions were answered to the best of my ability. This discharge took greater then 30 minutes in planning, reviewing documentation, counseling the patient, and discussing with other team members." ASSESSMENT ASSESSMENT Assessment PNEUMONIA Addendum Addendum Addendum I was physically present for the caruso portions of the service provided to patient by THE RESIDENT. I have reviewed the documentation, discussed the case with resident and agree with the resident's documentation except as noted. Also the patient's clinical case was discussed with the patient's nurse. This medical document was created using an electronic medical record system with computerized dictation system. Although this document has been carefully reviewed, there might still be some phonetic and typographical errors. These areas are purely typographical due to imperfections of the software programs, and do not reflect any compromise in the patient's medical care. Late signature. Date of Service: Apr 25, 2024 Billing Provider: MISSY BELLE MD Common Visit Codes: 82298-DAS/OBS DISCH DAY >30min BONG EVERETT RESIDENT Apr 25, 2024 14:13 MISSY BELLE MD Apr 26, 2024 05:07
[2024-04-25] MEDS ORDERED: FLUC200T PO (15:50)
== END 2024-04-25 18:15 | disposition home or self-care (01) | DRG 720 ==
LOC: ER 14:58 → EDBD 14:58 → OVERFLOW 22:30 → TELE-E-ADS 04-23 17:51 → EAST 04-23 18:09
PROVIDERS: ADMIT Internal Medicine Geriatric Medicine; ATTEND Internal Medicine Geriatric Medicine
DX: A41.59 Other Gram-negative sepsis (principal); J15.69 Pneumonia due to other Gram-negative bacteria; J90 Pleural effusion, not elsewhere classified; J15.9 Unspecified bacterial pneumonia; R16.0 Hepatomegaly, not elsewhere classified; D63.8 Anemia in other chronic diseases classified elsewhere; F10.10 Alcohol abuse, uncomplicated; D64.9 Anemia, unspecified; E87.6 Hypokalemia; N83.209 Unspecified ovarian cyst, unspecified side; J98.11 Atelectasis; F12.10 Cannabis abuse, uncomplicated; K29.70 Gastritis, unspecified, without bleeding; E66.9 Obesity, unspecified; N83.291 Other ovarian cyst, right side; Z68.34 Body mass index [BMI] 34.0-34.9, adult; Z79.899 Other long term (current) drug therapy; Y90.9 Presence of alcohol in blood, level not specified; Z88.2 Allergy status to sulfonamides; Z91.040 Latex allergy status
CPT/HCPCS: 36415; 71045; 74176; 76705; 76856; 80048; 80053; 80061; 80307; 80320; 81001; 82247; 82728; 83036; 83540; 83550; 83690; 84443; 84702; 85025; 85610; 87040; 87426; 87804; G0378; J1885; J2405; J2470; J3480